=== PATIENT | female | born 1950 | race Caucasian/White ===

== ENCOUNTER → 2016-05-22 | Outpatient (CLI) | payer OTHER, MEDICARE | LOC: KOH-I 14:35 | DX: M25.552 Pain in left hip (principal) | CPT/HCPCS: 73502 ==

== ENCOUNTER → 2016-05-25 | Outpatient (CLI) | payer OTHER | LOC: MAMO 11:00 | DX: Z12.31 Encounter for screening mammogram for malignant neoplasm of breast (principal); Z95.0 Presence of cardiac pacemaker | CPT/HCPCS: G0202 ==

== ENCOUNTER → 2016-07-14 | Outpatient (CLI) | payer OTHER | LOC: RAD 10:00 | DX: M05.79 Rheumatoid arthritis with rheumatoid factor of multiple sites without organ or systems involvement (principal); M15.9 Polyosteoarthritis, unspecified | CPT/HCPCS: 73130 ==

== ENCOUNTER → 2020-07-08 | Outpatient (CLI) | payer MEDICARE, OTHER ==
[~2020-07-08] MED LIST: ALBUTEROL2.5 MG/3 M INH; ANORO ELLIPTA1 EACH INH; COMPLETE M9 MG/15 ML PO; DITROPAN 5 MG TA5 MG PO; FISH OIL 1,0001 EAC1 PO; LEVAQUIN500 MG PO; MOTION SICKNESS25 M3 PO; NEURONTIN300 MG PO; OCUVITE ADULT1 EAC1 PO; PREDNISONE 20 M20 MG PO; PREDNISONE5 MG PO; PROTONIX 40 MG40 M1 PO; PROVENTIL HFA6.7 GM INH; PROZAC20 MG PO; VIBRAMYCIN100 MG PO; VITAMIN E400 UNI1 PO; XELJANZ5 MG PO; ZYRTEC10 M3 PO
== END ==
LOC: MAMO 06-14 10:35
DX: Z12.31 Encounter for screening mammogram for malignant neoplasm of breast (principal)
CPT/HCPCS: 77063; 77067

== ENCOUNTER → 2020-09-15 | Outpatient (CLI) | payer MEDICARE, OTHER | LOC: EXRD 08:03 | DX: M81.0 Age-related osteoporosis without current pathological fracture (principal); M05.79 Rheumatoid arthritis with rheumatoid factor of multiple sites without organ or systems involvement; Z79.52 Long term (current) use of systemic steroids; Z79.899 Other long term (current) drug therapy | CPT/HCPCS: 77080 ==

== ENCOUNTER → 2021-06-15 | Outpatient (CLI) | payer MEDICARE, OTHER | LOC: KOH-I 12:59 | DX: Z87.891 Personal history of nicotine dependence (principal); R91.8 Other nonspecific abnormal finding of lung field | CPT/HCPCS: 71271 ==

== ENCOUNTER → 2021-11-02 | Outpatient (CLI) | payer MEDICARE, OTHER | LOC: ECHO 10:00 | DX: R06.02 Shortness of breath (principal); I49.5 Sick sinus syndrome; Z95.0 Presence of cardiac pacemaker; I51.7 Cardiomegaly | CPT/HCPCS: ECHO; 93306 ==